=== PATIENT | male | born 1985 | race Caucasian/White ===

== ENCOUNTER 2017-08-07 17:35 | Emergency (ER) | payer SELFPAY ==
[2017-08-07 17:48] VITALS: BP 150/100; PULSE 102; TEMP 98.8; BMI 28.3
[2017-08-07] MEDS ORDERED: LIDOCAINE HCL 1%, 10 MG/ML (20ML VIAL) ONE (17:51)
[2017-08-07] MEDS ORDERED: CEPHALEXIN MONOHYDRATE 500 MG CAPSULE (UD) PO ONE (18:12)
[2017-08-07] MEDS ORDERED: IBUPROFEN 400 MG TABLET (FP) PO ONE ×2 (18:13→18:26)
--- NOTE | 2017-08-07 18:15 | PDOC ---
History of Present Illness - General History Source: Patient Exam Limitations: No Limitations - History of Present Illness Initial Comments: 08/07/17 18:27 The patient is a 31 year old male, with a significant past medical history of alcoholism, who presents to the emergency department s/p mechanical fall with, three days of an abscess on the right arm. As per patient, he was feeling dizzy and his legs gave out prior to his fall. He reports losing consciousness , however, his fall was unwitnessed thus he is unaware for how long. He reports significant bruising and infection to his laceration. Secondary to his infection he reports pain to the abscess ranking a 10/10. The patient denies drinking at the time of the accident, however, is an alcoholic. He denies any recent fevers, chills, headache or dizziness. He denies any recent nausea, vomit, diarrhea or constipation. He denies any recent chest pain or shortness of breath. He denies any recent dysuria, frequency, urgency or hematuria. Allergies: NKA Past surgical history: None reported. Social History: Alcoholic. Nonsmoker. Denies recreational drug use. <Brandon Ulrich - Last Filed: 08/07/17 19:06> - History of Present Illness Initial Comments: 08/09/17 09:36 Physical exam: Alert oriented no acute distress cooperative Afebrile vital signs normal Right arm: There is ecchymoses of the ulnar aspect of the upper arm extending to the mid forearm. There is a centralized fluctuant mass with erythema and warmth. There is no limited range of motion of the elbow and no point tenderness or deformity that might suggest fracture. Distal pulses full. No distal sensory or motor deficits. Impression: Bruise, abscess versus hematoma Plan: Incision and drainage, antibiotics, and orthopedic follow-up. <Haresh Duke - Last Filed: 08/09/17 09:40> - General Chief Complaint: Injury Stated Complaint: RT ARM INJURY, S/P FALL Time Seen by Provider: 08/07/17 17:44 Past History <Brandon Ulrich - Last Filed: 08/07/17 19:06> - Past Medical History COPD: No - Suicide/Smoking/Psychosocial Hx Smoking History: Never smoked Have you smoked in the past 12 months: Yes Number of Cigarettes Smoked Daily: 5 Information on smoking cessation initiated: Yes Hx Alcohol Use: (daily) <Haresh Duke - Last Filed: 08/09/17 09:40> - Past Medical History Allergies/Adverse Reactions: Allergies Allergy/AdvReac Type Severity Reaction Status Date / Time No Known Allergies Allergy Verified 08/07/17 17:38 Home Medications: Ambulatory Orders Cephalexin Monohydrate [Keflex] 500 mg PO Q6H #30 capsule 08/07/17 Ibuprofen 800 mg PO TID PRN #20 tablet 08/07/17 Review of Systems - Review of Systems Able to Perform ROS?: Yes Comments:: 08/07/17 18:28 CONSTITUTIONAL: Absent: fever, no chills, no fatigue EYES: Absent: visual changes ENT: Absent: ear pain, no sore throat CARDIOVASCULAR: Absent: chest pain, no palpitations RESPIRATORY: Absent: cough, no SOB GI: Absent: abdominal pain, no nausea, no vomiting, no constipation, no diarrhea GENITOURINARY: Absent: dysuria, no frequency, no hematuria MUSKULOSKELETAL: Absent: back pain, no arthralgia, no myalgia SKIN: Present: Abscess and bruise on right arm. Absent: rash NEURO: Absent: headache <Brandon Ulrich - Last Filed: 08/07/17 19:06> *Physical Exam - Vital Signs Last Vital Signs Temp Pulse Resp BP Pulse Ox 98.8 F 102 H 20 150/100 96 08/07/17 17:35 08/07/17 17:35 08/07/17 17:35 08/07/17 17:35 08/07/17 17:35 - Physical Exam Comments: 08/07/17 19:06 GENERAL: Well developed, well nourished. Awake and alert. No acute distress. HEENT: Normocephalic, atraumatic. PERRLA, EOMI. No conjunctival pallor. Sclera are non- icteric. Moist mucous membranes. Oropharynx is clear. NECK: Supple. Full ROM. No JVD. Carotid pulses 2+ and symmetric, without bruits. No thyromegaly. No lymphadenopathy. CARDIOVASCULAR: Regular rate and rhythm. No murmurs, rubs, or gallops. Distal pulses are 2+ and symmetric. PULMONARY: No evidence of respiratory distress. Lungs clear to auscultation bilaterally. No wheezing, rales or rhonchi. ABDOMINAL: Soft. Non-tender. Non-distended. No rebound or guarding. No organomegaly. Normoactive bowel sounds. MUSCULOSKELETAL Normal range of motion at all joints. No bony deformities or tenderness. No CVA tenderness. +EXTREMITIES: Right arm signs of old trauma and ecchymosis to the medial aspect of the arm from the mid upper arm to the mid forearm over the elbow. A fluctuant over the right elbow with tenderness to palpation. No sign of fracture. Full ROM. No clubbing. No calf tenderness. SKIN: Warm and dry. Normal capillary refill. No rashes. No jaundice. NEUROLOGICAL: Alert, awake, appropriate. Cranial nerves 2-12 intact. No deficits to light touch and temperature in face, upper extremities and lower extremities. No motor deficits in the in face, upper extremities and lower extremities. Normoreflexic in the upper and lower extremities. Normal speech. Toes are down- going bilaterally. Gait is normal without ataxia. PSYCHIATRIC: Cooperative. Good eye contact. Appropriate mood and affect. <Brandon Ulrich - Last Filed: 08/07/17 19:06> - Vital Signs Last Vital Signs Temp Pulse Resp BP Pulse Ox 98.8 F 102 H 20 150/100 96 08/07/17 17:35 08/07/17 17:35 08/07/17 17:35 08/07/17 17:35 08/07/17 17:35 <Haresh Duke - Last Filed: 08/09/17 09:40> Medical Decision Making - Medical Decision Making 08/09/17 09:38 Procedure note: Incision and drainage of possible abscess Skin was prepped with Betadine, and then scrubbed with normal saline, dried Local anesthesia with 1% lidocaine plain, good results Incision and drainage was performed. There was an extensive cavity filled with hematoma. This was evacuated. There was no pus or other sign of purulent fluid. A drain was inserted. The wound was dressed. Analgesics and antibiotics were prescribed The patient was advised to follow-up in 2 days for packing removal and further wound care. Fully ambulatory and in no pain or other distress upon discharge with friend to follow-up as recommended <Haresh Duke - Last Filed: 08/09/17 09:40> *DC/Admit/Observation/Transfer - Attestations Scribe Attestion: 08/07/17 18:31 Documentation prepared by Brandon Ulrich, acting as medical lead for Haresh Robbins MD. <Brandon Ulrich - Last Filed: 08/07/17 19:06> - Discharge Dispostion Admit: No <Haresh Duke - Last Filed: 08/09/17 09:40> Diagnosis at time of Disposition: Abscess - Discharge Dispostion Disposition: HOME Condition at time of disposition: Improved - Prescriptions Prescriptions: Cephalexin Monohydrate [Keflex] 500 mg PO Q6H #30 capsule Ibuprofen 800 mg PO TID PRN #20 tablet PRN Reason: Pain - Referrals Referrals: Bib Hernandez MD [Staff Physician] - 3 days - Patient Instructions Printed Discharge Instructions: DI for Incision and Drainage of a Skin Abscess Additional Instructions: See surgery doctor or return to ER for wound inspection and packing removal 3 days
[2017-08-07] MEDS ORDERED: CEPHALEXIN MONOHYDRATE 500 MG CAPSULE (UD) ONE (18:26)
== END 2017-08-07 18:45 | disposition home or self-care (01) ==
LOC: FER 17:35
PROC: 0H9BXZZ Drainage of Right Upper Arm Skin, External Approach (ICD-10-PCS; principal; 2017-08-07)
DX: L02.413 Cutaneous abscess of right upper limb (principal); W18.39XA Other fall on same level, initial encounter; Y93.89 Activity, other specified; Y92.9 Unspecified place or not applicable
CPT/HCPCS: 87070; 87077; 87205; 99283-25

== ENCOUNTER 2017-08-10 18:24 | Emergency (ER) | payer SELFPAY ==
[2017-08-10 18:40] VITALS: BP 136/82; PULSE 99; TEMP 98.4; BMI 19.5
--- NOTE | 2017-08-10 19:19 | PDOC ---
History of Present Illness - General History Source: Patient, Friend Exam Limitations: No Limitations - History of Present Illness Initial Comments: 08/10/17 19:46 The patient is a 31 year old male with significant past medical history of alcoholism who presents to the ED to get his right arm wound check out. As per the tool keeper, The patient reports he suffered a fall from his building steps last Tuesday. The patient reports the dressing that covered the wound and the packing inside the wound was removed by himself earlier today. The patient reports he was prescribed antibiotics for his wound, that he still takes. The patient denies any pain, fever, chills, blood or discharge coming out of the wound, nausea, vomiting, diarrhea, constipation. The patient denies any chest pain, shortness of breath. Allergies: NKA 08/10/17 19:59 08/10/17 19:59 <Leonarda Boyle - Last Filed: 08/10/17 19:59> <Clarice Reyes - Last Filed: 08/10/17 23:51> - General Chief Complaint: Revisit,Wound Recheck Stated Complaint: RIGHT ARM WOUND CHECK Time Seen by Provider: 08/10/17 19:15 Past History <Leonarda Boyle - Last Filed: 08/10/17 19:59> - Past Medical History COPD: No - Suicide/Smoking/Psychosocial Hx Smoking History: Never smoked Have you smoked in the past 12 months: Yes Number of Cigarettes Smoked Daily: 5 Information on smoking cessation initiated: Yes 'Breaking Loose' booklet given: 08/10/17 Hx Alcohol Use: No Drug/Substance Use Hx: No Substance Use Type: None <Clarice Reyes - Last Filed: 08/10/17 23:51> - Past Medical History Allergies/Adverse Reactions: Allergies Allergy/AdvReac Type Severity Reaction Status Date / Time No Known Allergies Allergy Verified 08/10/17 18:36 Home Medications: Ambulatory Orders Cephalexin Monohydrate [Keflex] 500 mg PO Q6H #30 capsule 08/07/17 Ibuprofen 800 mg PO TID PRN #20 tablet 08/07/17 Review of Systems - Review of Systems Able to Perform ROS?: Yes Comments:: 08/10/17 19:46 GENERAL/CONSTITUTIONAL: No fever or chills. No weakness. HEAD, EYES, EARS, NOSE AND THROAT: No change in vision. No ear pain or discharge. No sore throat. CARDIOVASCULAR: No chest pain or shortness of breath. RESPIRATORY: No cough, wheezing, or hemoptysis. GASTROINTESTINAL: No nausea, vomiting, diarrhea or constipation. GENITOURINARY: No dysuria, frequency, or change in urination. MUSCULOSKELETAL: No joint or muscle swelling or pain. No neck or back pain. SKIN: No rash NEUROLOGIC: No headache, vertigo, loss of consciousness, or change in strength/ sensation. ENDOCRINE: No increased thirst. No abnormal weight change. HEMATOLOGIC/LYMPHATIC: No anemia, easy bleeding, or history of blood clots. ALLERGIC/IMMUNOLOGIC: No hives or skin allergy. <Leonarda Boyle - Last Filed: 08/10/17 19:59> *Physical Exam - Vital Signs Last Vital Signs Temp Pulse Resp BP Pulse Ox 98.4 F 99 H 18 136/82 100 08/10/17 18:25 08/10/17 18:25 08/10/17 18:25 08/10/17 18:25 08/10/17 18:25 - Physical Exam Comments: 08/10/17 19:46 GENERAL: Awake, alert, and fully oriented, in no acute distress HEAD: No signs of trauma EYES: PERRLA, EOMI, sclera anicteric, conjunctiva clear ENT: Auricles normal inspection, hearing grossly normal, nares patent, oropharynx clear without exudates. Moist mucosa NECK: Normal ROM, supple, no lymphadenopathy, JVD, or masses LUNGS: Breath sounds equal, clear to auscultation bilaterally. No wheezes, and no crackles HEART: Regular rate and rhythm, normal S1 and S2, no murmurs, rubs or gallops ABDOMEN: Soft, nontender, normoactive bowel sounds. No guarding, no rebound. No masses EXTREMITIES: (+) 1 cm circular open wound right proximal forearm volar surface surrounded by 3cm indurated mildly tender non-fluctuant area. Wound is not draining purulent material; small amount blood in cavity, ecchymosis extends distally to wrist, proximal elbow, area non-tender non-indurated. Normal range of motion, no edema. No clubbing or cyanosis. No cords. NEUROLOGICAL: Cranial nerves II through XII grossly intact. Normal speech, normal gait SKIN: Warm, Dry, normal turgor, no rashes or lesions noted. 08/10/17 20:01 <Leonarda Boyle - Last Filed: 08/10/17 19:59> - Vital Signs Last Vital Signs Temp Pulse Resp BP Pulse Ox 98.4 F 99 H 18 136/82 100 08/10/17 18:25 08/10/17 18:25 08/10/17 18:25 08/10/17 18:25 08/10/17 18:25 <Clarice Reyes - Last Filed: 08/10/17 23:51> Medical Decision Making - Medical Decision Making Documentation has been prepared under my direction and personally reviewed by me in its entirety. I attest that this documented accurately reflects all work, treatment, procedures and medical decision making performed by me. As noted above, this 31-year-old man presents for wound check of incision and drainage of hematoma of his right forearm performed 2 days ago. Patient removed packing himself earlier today. He reports that pain is improved (4/10 from 10/10) and he has no new symptoms. Patient continues taking his antibiotics(Keflex) as prescribed. Exam as noted. Using sterile technique, wound was cleansed using sterile normal saline; no new purulent drainage obtained from wound. Small amount of blood drained from cavity. Sterile dry gauze taped to wound. Culture and sensitivity of drainage is negative for microorganisms. However, because the patient has surrounding area of tender induration, patient should continue on his Keflex. Referral information again given for Dr. Bib Hernandez, Gen. surgery. Patient should follow-up within 1 week. The patient should return to the ER if he has worsening pain/swelling or purulent drainage. <Clarice Reyes - Last Filed: 08/10/17 23:51> *DC/Admit/Observation/Transfer - Attestations Scribe Attestion: 08/10/17 19:52 Documentation prepared by Leonarda Boyle, acting as esthetician and manager medical spa for Clarice Reyes MD. <Leonarda Boyle - Last Filed: 08/10/17 19:59> <Clarice Reyes - Last Filed: 08/10/17 23:51> Diagnosis at time of Disposition: Healing wound - Discharge Dispostion Disposition: HOME Condition at time of disposition: Stable - Referrals Referrals: Bib Hernandez MD [Staff Physician] - - Patient Instructions Printed Discharge Instructions: How to Care for a Surgical Wound, Smoking Cessation Additional Instructions: continue to allow water to flow into wound when showering daily cover wound with gauze daily for next 3 days, then bandaid to wound continue Keflex as prescribed call Dr Hernandez's office tomorrow to arrange appointment within 1 week return to ER if wound becomes more painful/swollen/red or you have fever Print Language: GUATEMALAN - Post Discharge Activity
== END 2017-08-10 19:48 | disposition home or self-care (01) ==
LOC: FER 18:24
DX: Z48.01 Encounter for change or removal of surgical wound dressing (principal)
CPT/HCPCS: 99281-25